=== PATIENT | male | born 1990 | race Caucasian/White ===

== ENCOUNTER 2022-08-09 11:34 | Emergency (ER) | payer BC ==
[2022-08-09 11:42] VITALS: BP 137/97; PULSE 58; RESP 20; TEMP 98.4
--- NOTE | 2022-08-09 13:40 | ED ---
General Adult HPI - General Chief complaint: Head Injury Stated complaint: head injury - sent by urgent care Time Seen by Provider: 08/09/22 13:10 Source: patient, RN notes reviewed, old records reviewed Mode of arrival: ambulatory Limitations: no limitations - History of Present Illness Initial comments: Patient is a 31-year-old male who presents emergency department after being seen by urgent care for CT of the brain. Patient was at work when he struck his head on a metal box. Does not believe he passed out. He is not on blood thinners. Since then has been having intermittent headaches which did improve with Tylenol. Also some nausea but no episodes of emesis. Endorse some blurry vision earlier which has since resolved. Presents for CT scan of the brain. His no other acute complaint at this time. Past medical history includes hypertension which is being managed nonmedically at this time. He is requesting a computed tomography scan of the brain at this time. 2 Tylenol earlier today which seems to be helping his headache. - Related Data Allergies Allergy/AdvReac Type Severity Reaction Status Date / Time No Known Allergies Allergy Verified 08/09/22 11:42 Review of Systems ROS Statement: Those systems with pertinent positive or pertinent negative responses have been documented in the HPI. Review of Systems: CONST: Denies fever EYES: Denies blurry vision ENT: Denies nasal congestion C/V: Denies Chest pain RESP: Denies shortness of breath GI: Denies abdominal pain : Denies dysuria SKIN: Denies rash. MSK: Denies joint pain. NEURO: Endorses mild headache, photosensitivity ROS Other: All systems not noted in ROS Statement are negative. Past Medical History Past Medical History: Asthma History of Any Multi-Drug Resistant Organisms: None Reported Past Surgical History: Orthopedic Surgery Past Psychological History: No Psychological Hx Reported Smoking Status: Never smoker Past Alcohol Use History: Occasional Past Drug Use History: Marijuana General Exam - General Exam Comments Initial Comments: General: Appears in no acute distress. HEAD: Normal with no signs of head trauma. Negative ruiz sign. Negative hemotympanum. Negative raccoon eyes. EYES: PERRLA, EOMI, conjunctiva normal, no discharge. Pupils are 2 mm and equal bilaterally. ENT: Hearing grossly intact, normal oropharynx. RESPIRATORY: Clear breath sounds bilaterally. No wheezes, rales, or rhonchi. C/V: Regular rate and rhythm. S1 and S2 auscultated, peripheral pulses 2+ and intact throughout ABD: Abd is soft, nontender, nondistended EXT: Normal range of motion, no obvious deformity SKIN: No rashes or lesions observed on exposed skin. NEURO: Alert and oriented x 4. Cranial nerves II-XII intact. No focal sensory or strength deficits. NIH of 0. GCS of 15. Limitations: no limitations Course Vital Signs 08/09/22 11:38 Temperature 98.4 F Pulse Rate 58 L Respiratory 20 Rate Blood Pressure 137/97 O2 Sat by Pulse 100 Oximetry Medical Decision Making - Medical Decision Making Based on the patient's presentation and physical exam, do suspect he is having a concussion the patient is requesting a CT brain at this time. I believe this is reasonable to rule out any intracranial trauma. Exam is unremarkable. Laboratory studies are not indicated at this time. Vital signs are within acceptable limits. CT brain is interpreted by myself reveals no acute hemorrhage, mass effect, injury. I did the patient. Exam is unchanged and unremarkable. Vital signs remained within acceptable limits. He'll be discharged home at this time. He'll be given concussion instructions. Strict return precautions were discussed. . I instructed the patient to follow up with their PCP in the next 1-3 days. I explained that the patient should return to the emergency department if they experience any worsening symptoms. Strict return precautions were discussed with the patient. The patient expressed understanding of these instructions. I answered all questions that the patient had. The patient was discharged home in good condition with their prescriptions and follow up information. Disposition Clinical Impression: Concussion Disposition: HOME SELF-CARE Condition: Good Instructions (If sedation given, give patient instructions): Concussion (ED) Is patient prescribed a controlled substance at d/c from ED?: No Referrals: None,Stated [Primary Care Provider] - 1-2 days Time of Disposition: 14:20
--- NOTE | 2022-08-09 14:06 | CT ---
EXAMINATION TYPE: CT brain wo con DATE OF EXAM: 08/09/2022 COMPARISON: None. HISTORY: Fall, struck Rt sided of head on metal rack CT DLP: 1114.4 mGycm. Automated Exposure Control for Dose Reduction was Utilized. TECHNIQUE: CT scan of the head is performed without contrast. FINDINGS: There is no acute intracranial hemorrhage, mass effect, or midline shift identified. The ventricles and sulci are within normal limits in size. Roberson-white matter differentiation is maintain ed. The globes are intact and the visualized sinuses are clear. The calvarium is intact. IMPRESSION: No acute intracranial hemorrhage, mass effect, or midline shift is seen.
== END 2022-08-09 14:44 | disposition home or self-care (01) ==
LOC: EC 11:34
DX: S06.0X0A Concussion without loss of consciousness, initial encounter (principal); I10 Essential (primary) hypertension; J45.909 Unspecified asthma, uncomplicated; F12.90 Cannabis use, unspecified, uncomplicated; W18.39XA Other fall on same level, initial encounter; Y99.0 Civilian activity done for income or pay
CPT/HCPCS: 70450; 99283